=== PATIENT | female | born 1980 | race Caucasian/White ===

== ENCOUNTER 2019-07-07 00:36 | Emergency (ER) | payer MEDICAID ==
[~2019-07-07] VITALS: Ht 162.6 cm; Wt 65.8 kg
[2019-07-07 00:39] VITALS: BP 104/64
[2019-07-07] MEDS ORDERED: LIDOCAINE VISCOUS 2% 20 ML UDC PO ONE (00:50)
[2019-07-07] MEDS ORDERED: ALUMINUM HYD/MAG/SIMETHICONE 30 ML UDC PO ONE (00:50)
[2019-07-07] MEDS ORDERED: DICYCLOMINE HCL LIQUID 10 MG/5 ML UDC PO ONE (00:50)
--- NOTE | 2019-07-07 00:52 | NUR ---
PT STATES SHE HAD A SMOOTHIE THIS EVENING AND DEVELOPED EPIGASTRIC PAIN SHORTLY AFTERWARDS. STATES PAIN IS 3/10 AND IS STABBING AND BURNING TYPE PAIN, PAIN DOES NOT RADIATE. +N/V. TOOK ANTACID AT HOME BUT THREW IT UP. SIDE RAIL UP X 1 AND BED IN LOWEST POSITION. NKA NO MED HX
[2019-07-07] MEDS ORDERED: PANTOPRAZOLE 40 MG TABEC PO ONE (01:00)
[2019-07-07 01:11] VITALS: BP 104/64
--- NOTE | 2019-07-07 01:12 | NUR ---
Patient discharged with v/s stable. Written and verbal after care instructions given and explained. Patient alert, oriented and verbalized understanding of instructions. Ambulatory with steady gait. All questions addressed prior to discharge. ID band removed. Patient advised to follow up with PMD. Rx of OMEPRAZOLE given. Patient educated on indication of medication including possible reaction and side effects. Opportunity to ask questions provided and answered.
== END 2019-07-07 01:11 | disposition home or self-care (01) ==
LOC: MED 00:36
DX: K29.70 Gastritis, unspecified, without bleeding (principal); F17.210 Nicotine dependence, cigarettes, uncomplicated
CPT/HCPCS: 99284

== ENCOUNTER 2019-09-02 22:53 | Emergency (ER) | payer MEDICAID, OTHER ==
[~2019-09-02] VITALS: Ht 162.6 cm; Wt 67.6 kg
[2019-09-02 23:09] VITALS: BP 132/71
[2019-09-02] MEDS ORDERED: NACL 0.9% 1,000 ML IV ONE (23:25)
[2019-09-02] MEDS ORDERED: ONDANSETRON 4 MG/2 ML VIAL IVP ONE (23:25)
[2019-09-02] MEDS ORDERED: MORPHINE SULFATE 4 MG/ML SYR IVP ONE (23:25)
[2019-09-02 23:38] LABS: BASOPHILS % (AUTO) 0.3 % (0.0-2.0); EOSINOPHILS # (AUTO) 0.1 K/uL (0-0.4); EOSINOPHILS % (AUTO) 0.7 % (0.0-4.0); HEMATOCRIT 40.9 % (36-48); HEMOGLOBIN 13.8 g/dL (12.0-16.0); LYMPHOCYTES # (AUTO) 1.8 K/uL (2.5-16.5); LYMPHOCYTES % (AUTO) 15.6 % (20.5-51.1); MEAN CORPUSCULAR HEMOGLOBIN 31 pg (27-31); MEAN CORPUSCULAR HGB CONC 34 g/dL (33-37); MEAN CORPUSCULAR VOLUME 92.1 fL (80-94); MONOCYTES # (AUTO) 0.5 K/uL (0.8-1.0); MONOCYTES % (AUTO) 4.6 % (1.7-9.3); NEUTROPHILS # (AUTO) 9.1 K/uL (1.8-7.7); NEUTROPHILS % (AUTO) 78.8 % (42.2-75.2); PLATELET COUNT (AUTO) 279 K/uL (140-450); RED BLOOD CELL COUNT(AUTO) 4.44 MIL/uL (4.20-5.40); RED CELL DISTRIBUTION WIDTH 13.3 % (11.6-13.7); WHITE BLOOD COUNT (AUTO) 11.5 K/uL (4.8-10.8)
[2019-09-02 23:56] LABS: ANION GAP 13.1 (8-16); CARBON DIOXIDE 30.6 mmol/L (21-32); CREATININE 0.7 mg/dL (0.6-1.3); POTASSIUM 3.7 mmol/L (3.5-5.1); TOTAL BILIRUBIN 0.8 mg/dL (0.0-1.0)
[2019-09-03 02:24] VITALS: BP 132/71
== END 2019-09-03 02:24 | disposition home or self-care (01) ==
LOC: MED 22:53
DX: K80.20 Calculus of gallbladder without cholecystitis without obstruction (principal); K21.9 Gastro-esophageal reflux disease without esophagitis
CPT/HCPCS: 36415; 76705; 80053; 83690; 85025; 96374; 96375; 99284; J2270; J2405; J7030; Q0092